=== PATIENT | female | born 1955 | race Caucasian/White ===

== ENCOUNTER 2020-07-19 06:07 | Inpatient (IN) ==
--- NOTE | 2020-07-02 12:06 | PAT Medication Instructions ---
Medication Instructions Date of Service July 02, 2020 Home Medications atorvastatin [Lipitor] 40 mg PO QAM etodolac 500 mg PO BID multivitamin 1 tab PO QAM omeprazole 40 mg PO QAM pramipexole 1 tab PO HS ASK your surgeon for instructions etodolac 500 mg PO BID DO NOT take the morning of surgery multivitamin 1 tab PO QAM Take morning of surgery With a small sip of water, OTHERWISE NOTHING TO EAT OR DRINK AFTER MIDNIGHT: atorvastatin [Lipitor] 40 mg PO QAM omeprazole 40 mg PO QAM Take evening before surgery pramipexole 1 tab PO HS Other Notes If you have any questions please call us at [phone] or [phone] or [phone] or [phone]
--- NOTE | 2020-07-06 12:21 | Anesthesiology Consultation ---
Date of Service July 06, 2020 Assessment & Plan (1) Encounter for pre-operative examination: COVID Status: As of 07/06 assessment, patient denies travel to endemic area, known exposure/sick contacts, or symptoms of COVID19. Patient instructed that they and their household members must follow strict social distancing guidelines, wear a mask in public and avoid travel/events/gatherings for 14 days prior to surgery. Preoperative COVID19 testing to be completed prior to surgery per surgeon's arrangements. Patient made aware to self-isolate as much as possible between COVID testing and surgery. Chart Review Chart Review: Acceptable Risk for Surgery and Patient seen in Pre Admission Testing Teaching & Discussion Instructed NPO after midnight before surgery, except medications with 15 cc of water. Medication instructions provided according to the PAT guidelines. History Surgery Operation Date: 07/19/20 10:05 Proposed Procedures p L3-L5 Decompression Fusion, Spinal Cord Monitoring - Harrison Lester DO Height/Weight Height: 5 ft 3 in Weight: 74.7 kg Allergies Allergy/AdvReac Type Severity Reaction Status Date / Time erythromycin base Allergy Rash Verified 06/18/20 11:50 Penicillins Allergy Swelling Verified 06/18/20 11:50 of Lip/Tongue/Throat Sulfa (Sulfonamide Allergy Rash Verified 06/18/20 11:50 Antibiotics) Tetracyclines Allergy Rash Verified 06/18/20 11:50 zolpidem [From Ambien] AdvReac Hallucinati Verified 06/18/20 11:50 ng Medications Home Medications Medication Instructions Recorded Confirmed Last Taken atorvastatin [Lipitor] 40 mg PO QAM 06/18/20 06/18/20 Unknown etodolac 500 mg PO BID 06/18/20 06/18/20 Unknown multivitamin 1 tab PO QAM 06/18/20 06/18/20 Unknown omeprazole 40 mg PO QAM 06/18/20 06/18/20 Unknown pramipexole 1 tab PO HS 06/18/20 06/18/20 Unknown Past Medical History Medical History (Updated 07/06/20 @ 12:31 by Gustavo Cabezas) Fibromyalgia GERD (gastroesophageal reflux disease) Glaucoma History of COVID-19 dx 02/2020; fever, body aches, n/v/d, headache, cough, sob; not hospitalized, all symptoms resolved. History of hypertension History of migraine Hyperlipidemia Osteoarthritis Osteoporosis Restless leg syndrome Sleep apnea unable to tolerate CPAP TMJ (temporomandibular joint disorder) Clicking, soreness, does not lock. Exercise / Class Metabolic Activity II 4-5 Yardwork/Stairs/Walk up hill (Denies CP or SOB with 1 FOS, currently limited by knee and back pain) Past Family History Family History Brother Slow to wake up after anesthesia Past Surgical History Surgical History History of ankle surgery Rt; hardware present History of appendectomy History of arthroscopy of left knee x 4 History of bladder surgery bladder sling History of cervical spinal surgery ROM WNL History of cholecystectomy History of colonoscopy History of lumpectomy of right breast History of non-cataract eye surgery History of oral surgery History of tooth extraction History of total abdominal hysterectomy and bilateral salpingo-oophorectomy History of total left knee replacement History of tubal ligation Past Anesthesia History No Hx of Anesthesia Complications Pt reports being told mother and brother took a very long time to wake up from surgeries. History of PONV No Hx of PONV and No Hx of Motion Sickness Social History Smoking Status: Never smoker Do You Dip or Chew Tobacco: No Hx Alcohol Use: Yes Alcohol type: wine alcohol intake frequency: a few times a week Hx Substance Use: No substance use type: does not use Review of Systems Pt denies any recent chest pain, shortness of breath, palpitations, cough, fever, URI, or uncontrolled acid reflux. Physical Exam Vital Signs BP: 135/83 P: 69bpm SPO2: 98% RA T: 97.7 F R: 16 ENMT Mouth: + dentures (full upper) and + dental restorations (bridge on lower and posts for impending implants); no chipped teeth and no loose teeth Thyromental Distance: > or= 3.5 Finger Breadths Mallampati Class: I Neck normal visual inspection; neck extension not limited Respiratory normal respiratory effort, lungs clear to auscultation Cardiovascular RRR, no murmur, no edema Vessels: no carotid bruit Testing Laboratory Results 07/06/20 12:40 07/06/20 12:40 PT 9.8 Seconds (9.0-12.0) 07/06/20 12:40 INR 1.0 (0.9-1.1) 07/06/20 12:40 APTT 24.5 Seconds (21.0-31.0) 07/06/20 12:40 Urine Color Yellow 07/06/20 12:40 Urine Appearance Clear (Clear) 07/06/20 12:40 Urine pH 7.0 (4.5-7.5) 07/06/20 12:40 Ur Specific [place] 1.024 (1.000-1.030) 07/06/20 12:40 Urine Protein Negative (Negative) 07/06/20 12:40 Urine Glucose (UA) Negative (Negative) 07/06/20 12:40 Urine Ketones Negative (Negative) 07/06/20 12:40 Urine Nitrite Negative (Negative) 07/06/20 12:40 Ur Leukocyte Esterase Negative (Negative) 07/06/20 12:40 Blood Type O Positive 07/06/20 12:40 Antibody Screen NEGATIVE 07/06/20 12:40 Electrocardiogram Date: 12/30/19 Findings: + NSR @ (71bpm) Compared to EKG from 07/25/2017, PACs no longer present. Chest X-Ray Date: 07/06/20 Findings: + NAD
[2020-07-06 13:05] LABS: Basophils # (auto) 0.03 K/uL (0-0.2); Basophils % (auto) 0.5 %; Eosinophils # (auto) 0.15 K/uL (0-0.5); Eosinophils % (auto) 2.6 %; Hematocrit (blood only) 38.7 % (37-47); Hemoglobin 13.2 g/dL (12.0-16.0); Immature Granulocytes # (auto) 0.01 K/uL (0.00-0.02); Immature Granulocytes % (auto) 0.2 %; Lymphocytes # (auto) 2.42 K/uL (1.2-3.4); Lymphocytes % (auto) 42.5 %; Mean Corpuscular Hemoglobin 33.2 pg (25-34); Mean Corpuscular Hgb Conc 34.1 g/dL (32-36); Mean Corpuscular Volume 97.5 fL (80-100); Mean Platelet Volume 9.5 fL (7.4-10.4); Monocytes # (auto) 0.32 K/uL (0.11-0.59); Monocytes % (auto) 5.6 %; Neutrophils # (auto) 2.76 K/uL (1.4-6.5); Neutrophils % (auto) 48.6 %; Platelet Count 290 K/uL (130-400); RDW Coefficient of Variation 12.1 % (11.5-14.5); RDW Standard Deviation 43.1 fL (36.4-46.3); Red Blood Count 3.97 M/uL (4.2-5.4); White Blood Count 5.69 K/uL (4.8-10.8)
--- NOTE | 2020-07-06 13:09 | XRay Report ---
TWO VIEW CHEST CLINICAL HISTORY: Preoperative assessment. Lumbar spine surgery. FINDINGS: PA and lateral chest radiographs are obtained. No prior studies are available for compariso n at the time of dictation. The cardiomediastinal silhouette is unremarkable. The lungs and pleural spaces are clear. There is no pneumothorax. The skeletal structures are osteopenic. The bony thorax appears intact. Fusion hardware is noted in the lower cervical spine. Cholecystectomy clips are seen in the right upper quadrant. IMPRESSION: No active disease in the chest. ACT 112: Negative or not required by law. Electronically signed by: Dick Alarcon M.D. 07/06/2020 1:07 PM
[2020-07-06 13:13] LABS: Appearance Urine Clear (Clear); Bilirubin Urine Negative (Negative); Blood Urine Negative (Negative); Color Urine Yellow; Glucose Urine UA Negative (Negative); Ketones Urine Negative (Negative); Leukocyte Esterase Urine Negative (Negative); Nitrite Urine Negative (Negative); Protein Urine Negative (Negative); Specific Gravity Urine 1.024 (1.000-1.030); Urobilinogen Urine Negative (Negative)
[2020-07-06 13:15] LABS: Partial Thromboplastin Ratio 0.9; Partial Thromboplastin Time 24.5 Seconds (21.0-31.0); Prothrombin Time 9.8 Seconds (9.0-12.0)
[2020-07-06 15:03] LABS: BUN Creatinine Ratio 35.4 (10-20); Calcium 8.8 mg/dl (8.5-10.1); Creatinine Clr Calc Pharmacy 76.4 ml/min; Est GFR (African American) 102.6; Est GFR (Non-African American) 88.5; Potassium 3.9 mmol/L (3.5-5.1)
[~2020-07-19 06:07] MED LIST: ACETAMINOPHEN 500 MG TAB PO SCH; CLINDAMYCIN 600 MG/54 ML BAG IV SCH; CeleBREX 200 MG CAP PO SCH; GABAPENTIN 600 MG DOSE PO SCH; LR 15ML/HR IV SCH
[2020-07-19] MEDS ORDERED: ACETAMINOPHEN 1000 MG/100 ML IV IV ONE (06:47)
[2020-07-19] MEDS ORDERED: ePHEDrine sulfate 50 MG/ML AMP ONE (07:03)
[2020-07-19] MEDS ORDERED: DEXAMETHASONE SOD INJ 4 MG/ML VIAL ONE (07:03)
[2020-07-19] MEDS ORDERED: PHENYLEPHRINE HCL 10 MG/ML VIAL ONE (07:03)
[2020-07-19] MEDS ORDERED: NEOSTIGMINE METHYLSULFATE 1 MG/ML 10ML VIAL ONE (07:03)
[2020-07-19] MEDS ORDERED: LIDOCAINE HCL 2% 2 ML VIAL/AMP(20MG/ML) INFIL ONE (07:03)
[2020-07-19] MEDS ORDERED: fentaNYL citrate 100 MCG/2 ML VIAL ONE (07:03)
[2020-07-19] MEDS ORDERED: GLYCOPYRROLATE 0.2 MG/ML VIAL ONE (07:03)
[2020-07-19] MEDS ORDERED: MIDAZOLAM HCL 1 MG/ML 2ML VIAL ONE (07:03)
[2020-07-19] MEDS ORDERED: PROPOFOL IV EMULSION 10 MG/ML 20 ML VIAL IV ONE (07:03)
[2020-07-19] MEDS ORDERED: SUCCINYLCHOLINE CHLORIDE 20 MG/ML 10 ML VIAL IV ONE (07:03)
[2020-07-19] MEDS ORDERED: ONDANSETRON INJ 2 MG/ML 2 ML VIAL ONE (07:03)
[2020-07-19] MEDS ORDERED: HYDROmorphone INJ 2 MG/ML SYR/VIAL ONE (07:06)
[2020-07-19] MEDS ORDERED: BACITRACIN INJ 50,000 UNIT VIAL ONE (07:08)
[2020-07-19] MEDS ORDERED: BUPIVACAINE/EPINEPHRINE 0.5% MPF 1:200,000 30 ML VIAL ONE (07:08)
--- NOTE | 2020-07-19 07:36 | History & Physical Bridge Note ---
Date of Service July 19, 2020 History & Physical Bridge Note I have examined the patient, reviewed the History & Physical and in the interval since the performance of the History & Physical I have noted the following changes of clinical significance: no changes noted L4-S1 decompression fusion
--- NOTE | 2020-07-19 07:37 | History & Physical Report ---
Date of Service July 19, 2020 Assessment & Plan (1) Neurogenic claudication due to lumbar spinal stenosis: Admission and Anticipated Discharge Date Admission Date: L4-S1 decompression fusion History of Present Illness Chief Complaint: Back and bilateral leg pain Primary Care Provider: Malorie Torres PA-C This is a 64-year-old female who presents with chronic persistent back and bilateral leg pain. After failing course of nonoperative care she is here for surgical invention. Allergies Allergy/AdvReac Type Severity Reaction Status Date / Time erythromycin base Allergy Rash Verified 07/19/20 06:34 Penicillins Allergy Swelling Verified 07/19/20 06:34 of Lip/Tongue/Throat Sulfa (Sulfonamide Allergy Rash Verified 07/19/20 06:34 Antibiotics) Tetracyclines Allergy Rash Verified 07/19/20 06:34 zolpidem [From Ambien] AdvReac Hallucinati Verified 07/19/20 06:34 ng Home Medications Medication Instructions Recorded Confirmed Type atorvastatin [Lipitor] 40 mg PO QAM 06/18/20 07/19/20 History etodolac 500 mg PO BID 06/18/20 07/19/20 History multivitamin 1 tab PO QAM 06/18/20 07/19/20 History omeprazole 40 mg PO QAM 06/18/20 07/19/20 History pramipexole 1 tab PO HS 06/18/20 07/19/20 History Past Med/Surg History Medical History (Updated 07/19/20 @ 07:36 by Harrison Lester, DO) Fibromyalgia GERD (gastroesophageal reflux disease) Glaucoma History of COVID-19 dx 02/2020; fever, body aches, n/v/d, headache, cough, sob; not hospitalized, all symptoms resolved. History of hypertension History of migraine Hyperlipidemia Osteoarthritis Osteoporosis Restless leg syndrome Sleep apnea unable to tolerate CPAP TMJ (temporomandibular joint disorder) Clicking, soreness, does not lock. Surgical History History of ankle surgery Rt; hardware present History of appendectomy History of arthroscopy of left knee x 4 History of bladder surgery bladder sling History of cervical spinal surgery ROM WNL History of cholecystectomy History of colonoscopy History of lumpectomy of right breast History of non-cataract eye surgery History of oral surgery History of tooth extraction History of total abdominal hysterectomy and bilateral salpingo-oophorectomy History of total left knee replacement History of tubal ligation Family History Brother Slow to wake up after anesthesia Social History Smoking Status: Never smoker Second Hand Exposure: Yes (ex smoked); Do You Dip or Chew Tobacco: No; Hx Alcohol Use: Yes Alcohol type: wine Hx Substance Use: No Preferred Language: Croatian Communication Ability: Effective Founder / Ceo Required: No Beliefs That Will Affect Care: Latter-Day Latter-Day Beliefs: Scientology Current Living Situation: Spouse Feels Safe at Home: Yes Safety Concerns: Feels Safe At This Time Assistive Devices: Cane, Denture - Upper and Walker Assistive Devices Comment: walker/cane prn Physical Exam Physical Exam: Patient's alert and oriented Heart regular in rhythm Lungs clear to auscultation Results & Data ([facility]) Vital Signs (Past 12 Hours) Vital Signs Temp Pulse Resp BP Pulse Ox 07/19/20 06:55 36.8 C 67 18 129/83 98
[2020-07-19] MEDS ORDERED: FLOSEAL HEMOSTATIC MATRIX 10ML TOP ONE (09:38)
--- NOTE | 2020-07-19 09:40 | Operative Report ---
Post Operative Report Pre & Post Diagnosis Operation Date: 07/19/20 07:45 Pre-Op Diagnosis: Neurogenic Claudication due to Lumbar Spinal Stenosis Post-Op Diagnosis: Neurogenic Claudication due to Lumbar Spinal Stenosis I identified the patient and participated in the time-out.: Yes Procedure Operation Date: 07/19/20 07:45 Actual Procedures #1 lumbar decompression bilateral medial facetectomies and foraminotomies L3-4, L4-5 and L5-S1. #2 posterior spinal fusion L4-5 L5-S1. #3 patient posterior instrumentation L4-5 L5-S1. #4 interbody fusion L4-5. #5 placement of 10 x 22 mm peek cage at L4-5. #6 placement of locally harvested morselized autograft in the posterior gutters. #7 placement of I factor bone graft in the interbody space and posterior lateral gutters. Surgeon Harrison Lester, Community Ambassador Nehal Molina Estimated Blood Loss 150 Findings Consistent with Post-Op Diagnosis Specimens None Indications This is a 64-year-old female who presents above-mentioned diagnosis after failing since course of nonoperative care she is here for surgical invention. Description of Procedure Patient was met with identified informed consent obtained. Patient was then taken to the operative suite underwent an patient placed in a prone position the [place] table top Eduardo frame. All bony prominences well-padded eyes inspected to ensure no external pressure placed upon the. This point lumbar spine was prepped and draped in a sterile fashion. Sharp dissection with the assistance of Bovie cautery performed down to and exposing the lamina and transverse processes of L4-L5 and sacral ala bilaterally. From caudal cephalad fashion complete laminectomy L5 L4 and partial laminectomy of L3 was performed including bilateral medial facetectomies and foraminotomies addressing severe spinal stenosis. Marked dural adhesions were noted on the dorsal aspect of the dura an d approximately 2 mm incidental durotomy noted. I placed a 4-0 Nurolon suture x2 through the durotomy. This provided excellent seal. I did in addition to this place a small patch of DuraGen and DuraSeal over the durotomy site. I then proceeded to place pedicle screws in L4-L5 and S1 levels bilaterally with assistance of fluoroscopy and the proper sized daphne placed. By way of a transforaminal approach on right a complete discectomy of L4-5 was performed endplates curetted to subcortically bone and a 10 x 22 mm peek cage 12 I factor tapped in position. The rods were then locked into final position bilaterally. The transverse processes of L4-L5 and sacral ala burred to subcortical bleeding bone. I factor and locally harvested morselized autograft placed in the posterior gutters. 15 round MANDIE drain inserted. The incision was then closed with 1 Vicryl in the fascia 2-0 Vicryl subcutaneously and 4 Monocryl for final skin closure. Steri-Strip sterile dressings placed. Patient will continue to PACU stable condition. Please note spinal cord monitoring was utilized at the procedure no changes noted. Lastly Nehal Molina was present at the entire surgery involved the patient positioning complex portions of the surgery and final skin closure. I attest to the content of the Intraoperative Record and any orders documented therein. Any exceptions are noted below.
[2020-07-19] MEDS ORDERED: KETOROLAC 30 MG/ML VIAL ONE (09:41)
[2020-07-19] MEDS ORDERED: ePHEDrine sulfate 50 MG/ML SYR ONE (09:45)
[2020-07-19] MEDS ORDERED: PHENYLEPHRINE 100MCG/ML 5ML SYR ONE (09:45)
--- NOTE | 2020-07-19 10:07 | Fluoroscopy Report ---
FL lumbar spine 2-3V CLINICAL HISTORY: L3-5 DECOMPRESSION/FUSION/INTERBODY COMPARISON STUDY: None FLUOROSCOPY TIME: 25 seconds. NUMBER OF FLUOROSCOPIC IMAGES: 2 FINDINGS: 2 intraoperative fluoroscopic spot images reveal postsurgical changes of an L4-5 discectomy and interbody fusion. There is evidence for a posterior spinal decompression with posterior pedicle screw fixation with L4-S1 pedicle screws and rods. IMPRESSION: Postsurgical changes of an L4-S1 spinal decompression and fusion. ACT 112: Negative or not required by law. Electronically signed by: Kam Alamo M.D. 07/19/2020 10:05 AM
[2020-07-19] MEDS ORDERED: PROMETHAZINE HCL 12.5 MG in SODIUM CHLORIDE 0.9% 50 ML IV PRN (10:42)
[2020-07-19] MEDS ORDERED: hydrOXYzine HCl 25 MG TAB PO PRN (10:42)
[2020-07-19] MEDS ORDERED: bisacodyL 10 MG SUPP PR PRN (10:42)
[2020-07-19] MEDS ORDERED: DO NOT ADMINISTER FLU VACCINE PRN (10:42)
[2020-07-19] MEDS ORDERED: traMADol HCL 50 MG TABLET PO PRN (10:42)
[2020-07-19] MEDS ORDERED: SOD PHOSPHATE/SOD BIPHOSPHATE ENEMA 132 ML BTL PR PRN (10:42)
[2020-07-19] MEDS ORDERED: FAMOTIDINE 20 MG TAB PO PRN (10:42)
[2020-07-19] MEDS ORDERED: HYDROmorphone INJ 0.5 MG/0.5 ML SYR IV PRN (10:42)
[2020-07-19] MEDS ORDERED: MAGNESIUM HYDROXIDE SUSP 30 ML UDC PO PRN (10:42)
[2020-07-19] MEDS ORDERED: diphenhydrAMINE Capsule 25 MG CAP PO PRN (10:42)
[2020-07-19] MEDS ORDERED: ALUMINUM/MAGNESIUM SUSP 30 ML UDC PO PRN (10:42)
[2020-07-19] MEDS ORDERED: ONDANSETRON INJ 2 MG/ML 2 ML VIAL IV PRN (10:42)
[2020-07-19] MEDS ORDERED: LORazepam 0.5 MG/1 ML VIAL IV PRN (10:42)
[2020-07-19] MEDS ORDERED: DO NOT ADMINISTER PNEUMOCOCCAL VACCINE PRN (10:42)
[2020-07-19] MEDS ORDERED: NALOXONE HCL 0.4 MG/1 ML VIAL/CARP IV PRN (10:42)
[2020-07-19] MEDS ORDERED: ONDANSETRON 4 MG OD TAB PO PRN (10:42)
[2020-07-19] MEDS ORDERED: LORazepam 0.5 MG TAB PO PRN (10:42)
[2020-07-19] MEDS ORDERED: ACETAMINOPHEN 1,000 MG/100 ML VIAL IV PRN (10:42)
[2020-07-19] MEDS ORDERED: METOCLOPRAMIDE HCL INJ 5 MG/ML 2 ML VIAL IV PRN (10:42)
[2020-07-19] MEDS: LACTATED RINGER'S 1,000 ML IV SCH ×2 (10:55→21:16)
[2020-07-19] MEDS ORDERED: ePHEDrine sulfate 50 MG/ML AMP IV PRN (11:00)
[2020-07-19] MEDS ORDERED: ROCURONIUM BROMIDE 10 MG/ML 5 ML VIAL IV ONE (11:00)
[2020-07-19] MEDS ORDERED: ATROPINE SULFATE 0.1 MG/ML 10ML SYR IV PRN (11:00)
--- NOTE | 2020-07-19 11:00 | Anesthesiology Progress Note ---
Date of Service July 19, 2020 Anesthesia Post Procedure Vital Signs Vital Signs: Temp Pulse Pulse Resp BP Pulse Ox 07/19/20 10:35 36.3 C L 63 12 117/78 95 07/19/20 10:25 82 14 128/78 94 07/19/20 10:15 77 12 117/75 95 07/19/20 10:05 67 12 107/68 95 07/19/20 09:57 36.6 C 88 12 108/71 95 07/19/20 06:55 36.8 C 67 18 129/83 98 Pain Intensity Lower Back: Pain Intensity: 4 Transfer of Care Handoff Completed per policy Notes Mental Status: alert / awake / arousable Patient Amnestic to Procedure: Yes Nausea / Vomiting: adequately controlled Pain: adequately controlled Airway Patency, RR, SpO2: stable & adequate BP & HR: stable & adequate Hydration State: stable & adequate Neuraxial Anesthesia: was administered and sensory block is resolving Anesthetic Complications: no major complications apparent
[2020-07-19] MEDS: oxyCODONE HCL IR 5 MG TAB (IMMEDIATE RELEASE) PO PRN ×3 (12:42→21:21)
[2020-07-19] MEDS: CLINDAMYCIN 600 MG in DEXTROSE 5% 50 ML IV SCH ×2 (16:02→23:27)
[2020-07-19] MEDS: PRAMIPEXOLE DIHYDROCHLO 0.5 MG TAB PO SCH (20:17)
[2020-07-19] MEDS: DOCUSATE SODIUM/SENNA 50/8.6MG TAB PO SCH (20:21)
[2020-07-19] MEDS: ACETAMINOPHEN 500 MG TAB PO PRN (21:20)
[2020-07-19] MEDS: HYDROmorphone INJ 1 MG/ML SYRINGE IV PRN (23:31)
[2020-07-20] MEDS: oxyCODONE HCL IR 5 MG TAB (IMMEDIATE RELEASE) PO PRN ×4 (03:15→22:49)
[2020-07-20] MEDS: POLYETHYLENE (MIRALAX) 17 GM PACK PO SCH ×4 (05:57→22:43)
[2020-07-20] MEDS: HYDROmorphone INJ 1 MG/ML SYRINGE IV PRN (07:39)
[2020-07-20] MEDS: PANTOprazole 40 MG TAB PO SCH (07:59)
[2020-07-20] MEDS: ATORVASTATIN 40 MG TAB PO SCH (07:59)
[2020-07-20] MEDS: MULTIVITAMIN TAB PO SCH (07:59)
[2020-07-20] MEDS: LACTATED RINGER'S 1,000 ML IV SCH (08:02)
[2020-07-20 08:21] LABS: Hematocrit (blood only) 35.4 % (37-47); Hemoglobin 11.9 g/dL (12.0-16.0); Immature Granulocytes # (auto) 0.01 K/uL (0.00-0.02); Immature Granulocytes % (auto) 0.1 %; Lymphocytes # (auto) 1.78 K/uL (1.2-3.4); Lymphocytes % (auto) 18.8 %; Mean Corpuscular Hgb Conc 33.6 g/dL (32-36); Mean Corpuscular Volume 98.1 fL (80-100); Mean Platelet Volume 9.3 fL (7.4-10.4); Monocytes # (auto) 0.38 K/uL (0.11-0.59); Neutrophils # (auto) 7.29 K/uL (1.4-6.5); Neutrophils % (auto) 77.1 %; Platelet Count 268 K/uL (130-400); RDW Coefficient of Variation 12.5 % (11.5-14.5); RDW Standard Deviation 44.7 fL (36.4-46.3); Red Blood Count 3.61 M/uL (4.2-5.4); White Blood Count 9.46 K/uL (4.8-10.8)
[2020-07-20 08:52] LABS: BUN Creatinine Ratio 18.5 (10-20); Calcium 8.9 mg/dl (8.5-10.1); Creatinine Clr Calc Pharmacy 79.6 ml/min; Est GFR (African American) 106.6; Potassium 3.7 mmol/L (3.5-5.1)
--- NOTE | 2020-07-20 09:37 | Orthopedic Progress Note ---
Date of Service July 20, 2020 Assessment & Plan (1) Neurogenic claudication due to lumbar spinal stenosis: Admission and Anticipated Discharge Date Admission Date: July 19, 2020 At this time I will discontinue her drain and begin ambulation and transfers today in the room. If she tolerates this well we will advance to more physical therapy. Subjective Patient's back pain is controlled. Leg pain markedly improved. She denies any nausea vomiting or headaches. Physical Exam Physical Exam: Patient is constricted testing appears comfortable. Results & Data ([facility]) Vital Signs (Past 12 Hours) Vital Signs Temp Pulse Resp BP Pulse Ox 07/20/20 07:16 36.8 C 75 16 117/72 98 07/20/20 03:12 36.7 C 72 16 93/59 L 95 07/19/20 22:42 36.8 C 74 16 100/64 95
[2020-07-20] MEDS: PRAMIPEXOLE DIHYDROCHLO 0.5 MG TAB PO SCH (20:18)
[2020-07-20] MEDS: DOCUSATE SODIUM/SENNA 50/8.6MG TAB PO SCH (21:09)
[2020-07-20] MEDS: ACETAMINOPHEN 500 MG TAB PO PRN (22:48)
[2020-07-21] MEDS: POLYETHYLENE (MIRALAX) 17 GM PACK PO SCH ×2 (06:29→11:45)
[2020-07-21] MEDS: PANTOprazole 40 MG TAB PO SCH (08:23)
[2020-07-21] MEDS: MULTIVITAMIN TAB PO SCH (08:24)
[2020-07-21] MEDS: ATORVASTATIN 40 MG TAB PO SCH (08:24)
[2020-07-21] MEDS: oxyCODONE HCL IR 5 MG TAB (IMMEDIATE RELEASE) PO PRN ×3 (08:29→19:34)
[2020-07-21] MEDS: dexAMETHasone 8 MG in SYRINGE 0 ML IV SCH (09:21)
--- NOTE | 2020-07-21 12:09 | Orthopedic Progress Note ---
Date of Service July 21, 2020 Assessment & Plan (1) Neurogenic claudication due to lumbar spinal stenosis: Admission and Anticipated Discharge Date Admission Date: July 19, 2020 This time we will continue physical therapy and anticipate discharge home tomorrow. Subjective Patient's back pain is controlled leg pain improved. She is tolerating ambulation without difficulty. Physical Exam Physical Exam: On exam is in the chair at the bedside appears good strength testing. Appears comfortable. Results & Data ([facility]) Vital Signs (Past 12 Hours) Vital Signs Temp Pulse Resp BP Pulse Ox 07/21/20 07:37 37.2 C 77 16 106/68 96
[2020-07-21] MEDS: PRAMIPEXOLE DIHYDROCHLO 0.5 MG TAB PO SCH (20:27)
[2020-07-21] MEDS: DOCUSATE SODIUM/SENNA 50/8.6MG TAB PO SCH (20:27)
[2020-07-22] MEDS: oxyCODONE HCL IR 5 MG TAB (IMMEDIATE RELEASE) PO PRN ×2 (06:04→12:52)
[2020-07-22] MEDS: dexAMETHasone 8 MG in SYRINGE 0 ML IV SCH (08:11)
[2020-07-22] MEDS: MULTIVITAMIN TAB PO SCH (08:11)
[2020-07-22] MEDS: PANTOprazole 40 MG TAB PO SCH (08:11)
[2020-07-22] MEDS: ATORVASTATIN 40 MG TAB PO SCH (08:11)
--- NOTE | 2020-07-22 12:19 | Discharge Summary ---
Date of Service July 22, 2020 Admission HPI Per Admitting Provider This is a 64-year-old female who presents with chronic persistent back and bilateral leg pain. After failing course of nonoperative care she is here for surgical invention. Principal Diagnosis Lumbar spinal stenosis with neurogenic claudication Discharge Data Allergies Allergy/AdvReac Type Severity Reaction Status Date / Time erythromycin base Allergy Rash Verified 07/19/20 06:34 Penicillins Allergy Swelling Verified 07/19/20 06:34 of Lip/Tongue/Throat Sulfa (Sulfonamide Allergy Rash Verified 07/19/20 06:34 Antibiotics) Tetracyclines Allergy Rash Verified 07/19/20 06:34 zolpidem [From Ambien] AdvReac Hallucinati Verified 07/19/20 06:34 ng Procedures Performed Operation Date: 07/19/20 07:45 Actual Procedures p L4-S1 Decompression Fusion with insertion of Interbody, Spinal Cord Monitoring(Not Applicable) - Harrison Lester DO Ordered Studies 07/19/20 07:45 [place] lumbar spine 2-3V Routine Hospital Course (1) Neurogenic claudication due to lumbar spinal stenosis: Patient underwent lumbar decompression fusion tolerated well was taken to orthopedic for postoperative. Postop day 1 she was up with physical therapy progressed to postop day #2 on postop day 3 pain was well controlled leg pain improved subsequently discharged home. Discharge orders instructions from the chart for further review. Total Time Total Time Spent Total Time Spent (In Minutes): 20 minutes Discharge Plan Discharge Items Patient Disposition: Home - Self-Care Reason For Visit: Disc Disorders with Radiculopathy, Lumbar Legion Discharge Diagnosis: Lumbar spinal stenosis with neurogenic claudication Activity: As commented below Non-emergency contact: Primary Care Provider Call non-emergency contact if: you have any medication questions Follow-up/Referrals: Malorie Torres PA-C [Primary Care Provider] - Diet: Regular Addtl Attending Provider Instructions: ACTIVITY RECOMMENDATIONS: SELF CARE INSTRUCTIONS AFTER THORACIC/LUMBAR FUSIONS 1. You may walk to your tolerance. It is good exercise for your legs and back. Expect some back and intermittent leg aches and pains. 2. You may perform "counter-top" level activities (make a sandwich, julio cesar with a project, etc.). 3. No bending or lifting of more than 10 pounds or back twisting of any nature (roll like a log when turning in bed). 4. You may ride in a car for 20-30 minutes at a time. No driving until after your first visit with your doctor. 5. Frequent changes of position and restricting sitting to 30 minutes at a time will help limit the amount of back spasms and stiffness you may experience. 6. You may discontinue the use of ambulatory aids (cane, crutches, etc.) once your strength and confidence allow. 7. You may farm machinery erector the shower and let water strike your incision when you arrive home at least once daily. Do not take a tub bath, sit in a hot tub or go into a swimming pool until after your first recheck in the office. SPECIAL CARE INSTRUCTIONS: VERY IMPORTANT TO READ AND REVIEW A. Your surgical incision has been closed with a cosmetic suture under the skin that will dissolve in about 6 weeks. In 14 days, you can use a pair of clean scissors and cut the suture that is left outside of the skin at the ends of your incision. 1. The small skin tapes can be removed 7 days after surgery if they have not fallen off by that point. 2. You may keep the wound open to air as much as possible to promote healing after post-op day number 5 unless told otherwise by your doctor. 3. If you think the wound looks like it is becoming infected (redness or worsening drainage) and/or you are experiencing fever, chill or worsening back pain and muscle spasms, contact the office so that we may evaluate you as soon as possible. B. Complications are uncommon, but please contact us if you have any signs or symptoms of: 1. wound infection (fever higher than 102.5 degrees F, redness, separation of wound, drainage, or increasing pain from the incision) 2. blood clots in legs (pain, swelling, redness and warmth in legs) 3. urinary tract infection (fever higher than 102.5 degrees F, burning upon urination or increased frequency of urination) 4. nerve problems (inability to walk on your toes or heels, numbness, loss of bowel or bladder control) 5. any other symptoms that concern you C. Please call the office at if you have any concerns or questions about your operation or recovery. D. No smoking! Smoking drastically decreases the chance of a solid fusion. E. Do not take any anti-inflammatory medications (Indocin, Advil, Motrin, Aspirin, Naprosyn, etc.) as these may inhibit the chance of a solid fusion. Tylenol is okay to take for pain. MANAGING PAIN AFTER SPINAL SURGERY 1. Narcotic medication is intended for short-term use and will be provided for surgical pain. Surgical pain usually lasts for a period of 4-6 weeks. Narcotic medication includes Percocet, Vicodin, Darvocet, Tylenol #3 or Lortab. 2. Longer-term pain is more appropriately treated with non-narcotic medication such as Tylenol ES. 3. Muscle spasm is not appropriately treated with narcotics. Muscle relaxers such as Soma, Flexeril or Skelaxin can be used along with Tylenol ES. 4. Remember that we all live with some "aches and pains". This is not unusual or uncommon after an injury or as we get older. a. Back pain is expected and may include muscle spasms for 4 to 6 weeks after surgery. The pain should gradually improve. If the pain worsens for no apparent reason, please contact the office. b. Intermittent leg pain may also be experienced and should not be concerned about unless it worsens for no apparent reason. If so, please contact the office. 5. We will provide appropriate medication within the normal guidelines of their prescribed use. We will also be very cautious and aware of potential abuse and extended duration of patients' medication needs. a. Pain medications are for your comfort and to assist with sleep and rest so that the tissue can heal. They are not provided in order to return to normal activity and should not be used through the day. To do so or worsening pain at night can result from ongoing tissue damage and development of tolerance to the prescribed medicine. 6. Please allow 2-3 days to process refills. Prescriptions will not be mailed but must be picked up at the office. FOLLOW UP VISIT: Keep your scheduled follow-up appointment. Any questions, please call the office at . Pending Studies at Discharge: No Stand-Alone Forms: My [employer], Smoking Cessation Medications and DC Order Prescriptions: New tramadol 50 mg tablet 50 mg PO Q6H PRN (Reason: pain, moderate) Qty: 30 RF: 0 oxycodone 5 mg tablet 5 mg PO Q6H PRN (Reason: pain, severe) Qty: 30 RF: 0 Continued multivitamin Tablet 1 tab PO QAM RF: 0 atorvastatin [Lipitor] 40 mg Tablet 40 mg PO QAM RF: 0 omeprazole 40 mg Capsule,Delayed Release(Dr/Ec) 40 mg PO QAM RF: 0 pramipexole 1 tab PO HS RF: 0 Discontinued etodolac 500 mg Tablet 500 mg PO BID RF: 0 Discharge Orders: Discharge Order (Routine); Ordered 07/22/20 Ordered By: Harrison Lester Admission Data Admit Date/Time: 07/19/20 10:04 Attending Provider: Harrison Lester Admit Provider: Harrison Lester Primary Care Provider: Malorie Torres
== END 2020-07-22 13:35 | disposition home or self-care (01) | DRG 454 ==
LOC: ASU 06:07 → 3E 10:04